=== PATIENT | female | born 1975 | race Two or more races ===

== ENCOUNTER 2024-06-26 16:24 | Emergency (ER) | payer MEDICAID ==
[~2024-06-26] VITALS: Ht 157.5 cm; Wt 79.4 kg
[2024-06-26 16:30] VITALS: BP 108/80; RESP 18; O2SAT 98
[2024-06-26 16:47] VITALS: PULSE 89
== END 2024-06-26 17:03 | disposition left against medical advice (07) ==
LOC: ER 16:24 → EDBD 16:24 → ER 17:03
DX: R53.1 Weakness (principal); Z53.21 Procedure and treatment not carried out due to patient leaving prior to being seen by health care provider
CPT/HCPCS: 93005